=== PATIENT | male | born 1950 | race Caucasian/White ===

== ENCOUNTER 2018-11-10 16:51 | Emergency (ER) | payer MEDICARE, BC ==
--- NOTE | 2018-11-10 17:01 | UC ---
Throat Pain/Nasal Gianni HPI - HPI Summary HPI Summary: 68 y/o male presents to the urgent care c/o nasal congestion w/ green nasal congestion, sinus pain, moderate PND, B/L sinus pressure for the past week. Pt was seen at an urgent care at [facility] and was a nasal spray and Tessalon tabs to alleviate symptoms. However symptoms have worsen and now he has a constant productive cough. Sinus pain is 4/10. Pt denies fever, dizziness, SOB, wheezing , chest pain, abdominal pain, N/v/d. - History of Current Complaint Stated Complaint: SINUS CONGESTION Time Seen by Provider: 11/10/18 17:00 Hx Obtained From: Patient Onset/Duration: Gradual Onset, Lasting Weeks - 1 week, Still Present, Worse Since - 3 days Severity: Moderate Pain Intensity: 4 Pain Scale Used: 0-10 Numeric Cough: Productive - yellowish Associated Signs & Symptoms: Positive: Sinus Discomfort, Nasal Discharge - green. Negative: Dysphagia, Wheezing, Fever, Rash - Epiglottits Risk Factors Epiglottis Risk Factors: Negative - Allergies/Home Medications Allergies/Adverse Reactions: Allergies Allergy/AdvReac Type Severity Reaction Status Date / Time atorvastatin Allergy Unknown Swelling Verified 11/10/18 17:35 gabapentin Allergy Unknown Swelling Verified 11/10/18 17:35 lisinopril Allergy Unknown Swelling Verified 11/10/18 17:35 Penicillins Allergy Unknown Hives Verified 11/10/18 17:35 pregabalin Allergy Unknown Swelling Verified 11/10/18 17:35 Sulfa (Sulfonamide Allergy Unknown Rash Verified 11/10/18 17:35 Antibiotics) Home Medications: Home Medications Allopurinol TAB* [Zyloprim 100 MG TAB*] 200 mg PO DAILY 11/10/18 [History Confirmed 11/10/18] Amlodipine Besylate [Norvasc] 5 mg PO 11/10/18 [History] Fexofenadine (NF) [Giselle 180 (NF)] 180 mg PO 11/10/18 [History] Hydrocodone/Acetaminophen [Hydrocodone-Acetamin 10-325 mg] 1 tab PO 11/10/18 [ History] Hydroxychloroquine TAB* [Plaquenil TAB*] 200 mg PO BID 11/10/18 [History Confirmed 11/10/18] Methocarbamol TAB* [Robaxin 500 MG TAB*] 750 mg PO TID PRN 11/10/18 [History Confirmed 11/10/18] Methotrexate TAB* 2.5 mg PO WEEKLY 11/10/18 [History Confirmed 11/10/18] Ranitidine TAB (NF) [Zantac TAB (NF)] 150 mg PO BID 11/10/18 [History Confirmed 11/10/18] Rosuvastatin Calcium [Crestor] 10 mg PO 11/10/18 [History] SUMAtriptan SQ* [Imitrex SQ*] 6 mg SUBCUT SEE INSTRUCTIONS 11/10/18 [History Confirmed 11/10/18] Tapentadol ER (NF) [Nucynta ER (NF)] 150 mg PO 11/10/18 [History] Topiramate TAB(*) [Topamax 100 mg tab] 200 mg PO BEDTIME 11/10/18 [History Confirmed 11/10/18] inFLIXimab* [Remicade*] 11/10/18 [History Confirmed 11/10/18] levETIRAcetam TAB* [Keppra TAB*] 750 mg PO BID 11/10/18 [History Confirmed 11/10] predniSONE TAB* [Deltasone 1 MG TAB*] 1 mg PO DAILY 11/10/18 [History Confirmed 11/10/18] traZODone TAB* [Desyrel TAB*] 200 mg PO BEDTIME 11/10/18 [History Confirmed 06/30] PMH/Surg Hx/FS Hx/Imm Hx Previously Healthy: Yes Endocrine History: Dyslipidemia Other Endocrine History: gout, RA Cardiovascular History: Hypertension Neurological History: Seizures, Migraine - Family History Known Family History: Positive: Cardiac Disease, Hypertension - Social History Occupation: Retired Lives: With Family Review of Systems All Other Systems Reviewed And Are Negative: Yes Constitutional: Positive: Negative Skin: Positive: Negative Eyes: Positive: Negative ENT: Positive: Ear Ache - b/L ear pressure, Nasal Discharge - green, Sinus Congestion, Sinus Pain/Tenderness, Other - moderate yellowish PND Respiratory: Positive: Cough - productive w/ yellowish phlegm Cardiovascular: Positive: Negative Gastrointestinal: Positive: Negative Genitourinary: Positive: Negative Motor: Positive: Negative Neurovascular: Positive: Negative Musculoskeletal: Positive: Negative Neurological: Positive: Headache - sinus pain Psychological: Positive: Negative Is Patient Immunocompromised?: No Physical Exam - Summary Physical Exam Summary: Vitals: reviewed General: Well developed, well-nourished male patient with NAD. Head and face: Normocephalic and atraumatic, Positive tenderness over the frontal and maxillary sinuses.. Eyes: PERRLA, EOMI x 2. Normal conjunctiva. No eye discharge. ENT: Ears and TM with normal limits. Nose: edematous and erythematous nasal mucosa with with yellowish discharge and erythematous mucosa. Pharynx with erythema, no exudate. Moderate yellowish PND Neck: Supple, no JVD, no carotid bruits and no lymphadenopathy. Lungs: clear, no rales, no rhonchi, no wheezes. CVS: RRR, S1 and S2 present no murmurs or gallops appreciated. Abdomen: soft nontender with positive bowel sounds. Extremities: no edema noted. Neuro: WNL. Skin: warm and dry Triage Information Reviewed: Yes Throat Pain/Nasal Course/Dx - Course Course Of Treatment: 68 y/o male presents to the urgent care c/o nasal congestion w/ green nasal congestion, sinus pain, moderate PND, B/L sinus pressure for the past week. Pt was seen at an urgent care at [facility] and was a nasal spray and Tessalon tabs to alleviate symptoms. However symptoms have worsen and now he has a constant productive cough. Sinus pain is 4/10. Pt denies fever, dizziness, SOB, wheezing , chest pain, abdominal pain, N/v/d. Hx obtained. Pt w/ acute bacterial sinusitis on examination. Pt is hemodynamically stabel, A&OX3 with 1 week of symptoms getting worse. His Temp 100.4F. It seems he just startin gto develops fever since he denies fever at home. Pt given Tylenol PO for fever. He tolerated well medication and felt better. Pt PCN allergic. Pt Rx doxycycline PO and advised to continue Flonase nasal spray and Tessalon PO to alleviate his symptoms. Discharge instructions explained to Pt. Advised to Return to the clinic or PCP if symptoms do not improve.Pt's BP is elevated today advised to decrease salt in diet, monitor BP and f/u with PCP for further management. Pt understood and agreed with plan of care. - Differential Dx/Diagnosis Differential Diagnosis/HQI/PQRI: Influenza, Laryngitis, Otitis Media, Pharyngitis, Sinusitis, URI Provider Diagnosis: Acute bacterial sinusitis, Uncontrolled hypertension Discharge - Sign-Out/Discharge Documenting (check all that apply): Patient Departure - d/C home All imaging exams completed and their final reports reviewed: No Studies - Discharge Plan Condition: Stable Disposition: HOME Prescriptions: DOXYcycline CAP(*) [DOXYcycline 100MG CAP(*)] 100 mg PO BID #20 cap Patient Education Materials: Sinusitis (ED) Referrals: [facility] [place] [facility] REFERRAL [Outside] - 3 Days Additional Instructions: 1- Please increase fluid intake and rest. take full course of antibiotic to avoid resistance. Take yogurt w/ probiotics or culturelle to protect your GI system 2-Use the Flonase nasasl spray you have at home as directed to help drain fluid. Also buy saline drops to clear sinuses 3-Continue Taking Tessalon tabs as directed to alleviate cough. 4-Return to the clinic or PCP if symptoms do not improve for further management and treatment 5- Take Tylenol PO q5-6hrs prn to alleviate pain and control fever. Increase intake, and rest. 5- Your BP is elevated today. please decrease salt in your diet, monitor BP and if it continues to be elevated please f/u with your PCP for further management. - Billing Disposition and Condition Condition: STABLE Disposition: Home
[2018-11-10 17:31] VITALS: BP 151/83
[2018-11-10] MEDS ORDERED: Acetaminophen TAB* 325 MG PO ONE (17:55)
== END 2018-11-10 18:06 | disposition home or self-care (01) ==
LOC: UCEAST 16:51
DX: J01.80 Other acute sinusitis (principal); B96.89 Other specified bacterial agents as the cause of diseases classified elsewhere; I10 Essential (primary) hypertension; Z88.0 Allergy status to penicillin; Z88.2 Allergy status to sulfonamides
CPT/HCPCS: 99202; A9270-GY; G0463